=== PATIENT | female | born 1965 | race Caucasian/White ===

== ENCOUNTER → 2017-03-20 | Outpatient (CLI) | payer BC ==
[~2017-03-20] MED LIST: ARIP30TA3 PO; LAMO200T PO; LISI-725 PO; METF-384 PO; ROSU5TAB PO; SERT-234 PO
--- NOTE | 2017-03-20 16:07 | MAMMOGRAPHY REPORT ---
BILATERAL DIGITAL SCREENING MAMMOGRAM TOMOSYNTHESIS WITH CAD: 03/20/2017 CLINICAL HISTORY: Routine screening. Patient has no complaints. TECHNIQUE: Breast tomosynthesis in addition to standard 2D mammography was performed. Current study was also evaluated with a Computer Aided Detection (CAD) system. COMPARISON: Comparison is made to exams dated: 03/18/2016 mammogram, 11/12/2014 mammogram - [facility], 12/13/2007, 12/13/2007, 06/12/2007, and 06/12/2007. BREAST COMPOSITION: The tissue of both breasts is almost entirely fatty. FINDINGS: There are a few benign-appearing calcifications in the right upper outer quadrant. No susp icious mass, architectural distortion or cluster of suspicious microcalcifications is seen. IMPRESSION: ACR BI-RADS CATEGORY 1: NEGATIVE There is no mammographic evidence of malignancy. A 1 year screening mammogram is recommended. The pa tient will receive written notification of the results. Approximately 10% of breast cancers are not detected with mammography. A negative mammographic report should not delay biopsy if a clinically suggestive mass is present. Dolores Cline M.D. ay/:03/20/2017 15:54:44 [employer] Production: Jess Ibrahim, [facility] letter sent: Normal 1/2 BI-RADS Code: ACR BI-RADS Category 1: Negative
== END | disposition home or self-care (01) ==
LOC: C.MAMM 14:27
PROVIDERS: ATTEND Nurse Practitioner Family
DX: Z12.31 Encounter for screening mammogram for malignant neoplasm of breast (principal)

== ENCOUNTER → 2017-05-01 | Outpatient (CLI) | payer BC ==
[2017-05-01 11:06] LABS: RATIO 6.8 mcg/mg (0-30.0)
[2017-05-01 11:22] LABS: CHOLESTEROL/HDL RATIO 4.5; THYROID STIMULATING HORMONE 2.44 uIu/ml (0.300-4.500)
[2017-05-01 11:23] LABS: ESTIMATED AVERAGE GLUCOSE 157 mg/dl; HA1C FLAG Normal (Normal)
== END | disposition home or self-care (01) ==
LOC: C.LAB1850 09:37
PROVIDERS: ATTEND Nurse Practitioner Family
DX: E11.65 Type 2 diabetes mellitus with hyperglycemia (principal)

== ENCOUNTER → 2017-08-02 | Outpatient (CLI) | payer BC ==
[2017-08-02 10:22] LABS: ESTIMATED AVERAGE GLUCOSE 114 mg/dl; HA1C FLAG Normal (Normal)
== END | disposition home or self-care (01) ==
LOC: C.LAB1850 08:47
PROVIDERS: ATTEND Nurse Practitioner Family
DX: E11.65 Type 2 diabetes mellitus with hyperglycemia (principal)

== ENCOUNTER → 2017-11-03 | Outpatient (CLI) | payer BC ==
[2017-11-03 10:24] LABS: HEMOGLOBIN A1C 5.5 % (4.5-5.6)
== END | disposition home or self-care (01) ==
LOC: C.LAB1850 08:50
PROVIDERS: ATTEND Nurse Practitioner Family
DX: E11.65 Type 2 diabetes mellitus with hyperglycemia (principal); E78.5 Hyperlipidemia, unspecified; I10 Essential (primary) hypertension

== ENCOUNTER → 2018-03-02 | Outpatient (CLI) | payer BC ==
--- NOTE | 2018-03-02 11:23 | EEG Procedure Note ---
EEG Procedure Note Date of Service Mar 02, 2018. Start / End Times Start Time: 0856 End Time: [address] Arreguin History 53-year-old with history of intermittent olfactory hallucinations, question temporal lobe seizure disorder. Home Medication List Scheduled Aripiprazole (Abilify), 30 MG PO DAILY Lamotrigine (Lamictal), 200 MG PO DAILY Lisinopril (Zestril), 20 MG PO DAILY Metformin Hcl (Glucophage), 1,000 MG PO BID Rosuvastatin Calcium (Crestor), 5 MG PO DAILY Sertraline (Zoloft), 200 MG PO DAILY Description This is a 21 electrode EEG with a single channel dedicated to limited EKG. The electrodes were placed in accordance with the International 10-20 system. Interpretation The predominant activity consisted of a very well modulated 9 hertz rhythm of up to 60 microvolts in amplitude seen over the posterior head regions bilaterally, spreading anteriorly. This activity attenuates nicely with eye opening and other alerting procedures. A minimal amount of muscle and movement artifact activity contaminate the recording and did not hinder interpretation to any significant degree. Photic stimulation produced no driving response and no abnormalities were noted. hyperventilation was not performed. Throughout the waking portion of the recording, no focal abnormalities, potentially epileptogenic discharges, or abnormal slow activity was seen. There were no abnormalities in the temporal lobes. Patient entered the drowsy state from time to time with no further activation. In summary this study is normal during wakefulness and drowsiness. No focal abnormalities are noted and no potentially epileptogenic discharges were seen. Clinical Correlation The absence of potentially epileptogenic activity does not exclude a seizure disorder since inter ictally EEGs can be normal and clinical correlation is required.
== END | disposition home or self-care (01) ==
LOC: C.NEUR 08:32
PROVIDERS: ATTEND Student in an Organized Health Care Education/Training Program
DX: R44.2 Other hallucinations (principal)